=== PATIENT | female | born 1985 | race Hispanic/Latino ===

== ENCOUNTER 2019-11-10 15:52 | Emergency (ER) | payer OTHER, SELFPAY ==
[2019-11-10 15:53] VITALS: BP 146/89; PULSE 108; RESP 16; TEMP 36.6; O2SAT 98; BMI 28.3
--- NOTE | 2019-11-10 16:02 | ED.DCSUM_ITS ---
History of Present Illness Chief Complaint: Upper Extremity Injury Informant: Patient Onset: Today Context: Sudden Onset Timing: Continuous Current Severity: Moderate Maximum Severity: Moderate Narrative: The patient is an otherwise healthy 34-year-old female who presents to the emergency department with right thumb injury. Patient was at work. She got her finger stuck between a metal clamp. She had immediate pain and bleeding. She went to [facility] but was sent here for further evaluation. Her tetanus is up-to-date. She is right-hand dominant. She denies other injury. She is on no daily medications. Prior similar symptoms: No Recent Illness/Hospitalization: No Past Medical History - Allergies and Home Meds Allergies/Adverse Reactions: Allergies No Known Allergies Allergy (Verified 11/10/19 15:58) Primary Care Physician: Claribel Rodriguez [Primary Care Provider] - Prior records reviewed: Yes Past Medical History: None Surgical History: no surgical history Review of Systems General: Denies: Chills, Fever, Sweats Eyes: Denies: Visual changes - bilaterally, Diplopia ENT: Denies: Rhinorrhea, Sore throat Cardiovascular: Denies: Chest pain, Palpitations Respiratory: Denies: Dyspnea, Cough, Dyspnea on exertion Gastrointestinal: Denies: Abdominal pain, Nausea, Vomiting, Diarrhea, Melena, Hematochezia Genitourinary: Denies: Dysuria, Hematuria, Frequency Musculoskeletal: Denies: Back pain, Extremity Pain Skin: Denies: Rash, Wounds Neurological: Denies: Headache, Weakness, Numbness Physical Exam Vital Signs/Narrative: Vital Signs Temp Pulse Resp BP Pulse Ox 11/10/19 15:53 97.9 F 108 H 16 146/89 H 98 Inital Vital Signs reviewed: Yes General: Well nourished, Well developed, No Acute Distress Head: Normocephalic, Atraumatic Eyes: Perrl, EOMI ENT: Moist mucous membranes, No rhinorrhea Neck: Supple, Nontender Cardiovascular: Regular rate, Regular rhythm, No murmurs Respiratory: No distress, CTA bilaterally, Chest nontender Abdomen: Soft, Nontender, Nondistended, Normal bowel sounds Back: Nontender, Normal Inspection Extremities: No edema, Tenderness - Patient has multiple lacerations of the distal end of the thumb. There is minimal active bleeding. She is able to flex and extend. Cap refill is less than 2 seconds. Skin: Normal color, No rash Neurological: Alert, Oriented x3, Cranial nerves II-XII grossly intact, Normal Strength, Normal Sensation Psychological: Normal affect, Normal Mood Diagnostic/Tx/Re-eval - Medical Decision Making The patient presents to the emergency department with right thumb injury. Cap refill is less than 2 seconds. Plain films obtained which show no evidence of acute tuft fracture. Digital block was performed with a total of 6 cc of bupivacaine. Once the patient was anesthetized, she was copiously irrigated and then soaked in a chlorhexidine and saline solution. Her wound was repaired using a total of 12 simple interrupted suture. I also trephinated the nail as there was subungual hematoma. The patient was placed in an AlumaFoam splint with bacitracin. I am going to place her on Keflex given the amount of tissue damage. I counseled her to follow-up with [facility] in the next 2 days for wound check. She is comfortable with this plan of care. Impression 1. Right thumb crush injury with 4 cm laceration with repair and evacuation of subungual hematoma ED Disposition - Plan for ED Patient: Instructions: CRUSH INJURY, Hand/Finger Prescriptions: Cephalexin [Keflex] 500 mg PO Q6 #40 cap Prescription Printed [facility]errals: [facility] - 2 Days for wound check
--- NOTE | 2019-11-10 16:07 | RAD_ITS ---
STUDY: X-RAY - RIGHT HAND REASON FOR EXAM: Female, 34 years old. LACERATION TO DISTAL FIRST DIGIT S/P CRUSH INJURY TECHNIQUE: 4 view(s) of the hand. COMPARISON: None. FINDINGS: No acute fracture, dislocation or osseous destruction. No significant joint space narrowing. No significant productive changes. Mild deformity at the distal first digit. IMPRESSION: Soft tissue deformity at the distal first digit without acute fracture or dislocation. Electronically Signed: Don Thornton, at 16:59 EST Tel , Service support , RAD/Hand Min 3 Views
[2019-11-10] MEDS: Bupivacaine Mpf 0.5% 30 ML VIAL INFILT (17:17)
== END 2019-11-10 17:20 | disposition home or self-care (01) ==
PROVIDERS: Emergency Provider Emergency Medicine
DX: S67.01XA Crushing injury of right thumb, initial encounter (principal); S61.111A Laceration without foreign body of right thumb with damage to nail, initial encounter; W23.0XXA Caught, crushed, jammed, or pinched between moving objects, initial encounter; Y93.89 Activity, other specified; Y92.9 Unspecified place or not applicable; Y99.0 Civilian activity done for income or pay
CPT/HCPCS: 11740; 12002; 73130; 99284